=== PATIENT | male | born 1950 | race Caucasian/White ===

== ENCOUNTER 2022-01-20 17:24 | Inpatient (IN) | payer MEDICARE, OTHER ==
[~2022-01-20] VITALS: Ht 177.8 cm; Wt 73.9 kg
[2022-01-20 17:46] LABS: BASOPHILS # (AUTO) 0.1 (0.0-0.1); EOSINOPHILS # (AUTO) 0.2 (0.0-0.4); EOSINOPHILS % 1.5 % (0.0-6.0); HEMATOCRIT 23.8 % (38.2-49.6); HEMOGLOBIN 7.1 g/dL (14.0-18.0); LYMPHOCYTES # (AUTO) 0.8 (1.0-3.2); LYMPHOCYTES % 7.1 % (18.0-39.1); MEAN CORPUSCULAR HEMOGLOBIN 28.9 pg (28-32); MEAN CORPUSCULAR HGB CONC 29.8 g/dL (31-35); MEAN CORPUSCULAR VOLUME 96.7 fL (81-99); MONOCYTES # (AUTO) 0.8 (0.2-0.8); MONOCYTES % 6.7 % (4.4-11.3); NEUTROPHILS % 76.9 % (38.7-80.0); PLATELET COUNT 285 x10e3/uL (140-360); RED BLOOD COUNT 2.46 x10e6/uL (4.3-5.7); RED CELL DISTRIBUTION WIDTH 16.9 % (11.7-14.4)
[2022-01-20] MEDS ORDERED: SODIUM CHLORIDE FLUSH 10 ML SYR INJ PRN (18:00)
[2022-01-20 18:02] LABS: ANION GAP 14.4 mmol/L (8-16); CREATININE, SERUM 2.82 mg/dL (0.72-1.25); POTASSIUM 4.4 mmol/L (3.5-5.1)
[2022-01-20] MEDS ORDERED: DOCUSATE SODIUM 100 MG CAP PO PRN (19:45)
[2022-01-20 20:00] VITALS: BP 130/67
[2022-01-20 21:00] VITALS: BP 130/67
[2022-01-20 21:14] VITALS: BP 116/63
[2022-01-21] VITALS (8 sets, daily range): BP systolic 112–146; BP diastolic 59–72
[2022-01-21] MEDS: ONDANSETRON HCL INJ 2MG/ML 2ML 2 MG/ML VIAL IV PRN ×2 (00:15→23:27)
[2022-01-21] MEDS: Morphine 4mg Syringe 4 MG/ML INJ IV PRN (05:39)
[2022-01-21 06:01] LABS: HEMATOCRIT 22.1 % (38.2-49.6)
[2022-01-21 06:05] LABS: HEMOGLOBIN 6.7 g/dL (14.0-18.0)
[2022-01-21] MEDS: MULTIVITAMINS/MINERALS TAB PO SCH (09:09)
[2022-01-21] MEDS: FAMOTIDINE 20 MG TAB PO SCH ×2 (09:09→17:09)
[2022-01-21] MEDS ORDERED: SODIUM CHLORIDE 0.9% 250ML 250 ML ONE (10:52)
[2022-01-21] MEDS ORDERED: ACETAMINOPHEN 325 MG TAB PO PRN (20:00)
[2022-01-21 20:55] LABS: BASOPHILS # (AUTO) 0.1 (0.0-0.1); EOSINOPHILS # (AUTO) 0.2 (0.0-0.4); EOSINOPHILS % 1.6 % (0.0-6.0); HEMATOCRIT 27.3 % (38.2-49.6); HEMOGLOBIN 8.4 g/dL (14.0-18.0); LYMPHOCYTES % 8.3 % (18.0-39.1); MEAN CORPUSCULAR HEMOGLOBIN 29.7 pg (28-32); MEAN CORPUSCULAR HGB CONC 30.8 g/dL (31-35); MEAN CORPUSCULAR VOLUME 96.5 fL (81-99); MONOCYTES % 8.5 % (4.4-11.3); NEUTROPHILS # (AUTO) 8.7 (2.1-6.9); NEUTROPHILS % 74.4 % (38.7-80.0); PLATELET COUNT 230 x10e3/uL (140-360); RED BLOOD COUNT 2.83 x10e6/uL (4.3-5.7); RED CELL DISTRIBUTION WIDTH 17.3 % (11.7-14.4)
[2022-01-21 21:15] LABS: ALBUMIN 2.4 g/dL (3.5-5.0); ALBUMIN/GLOBULIN RATIO 0.7 (0.8-2.0); ANION GAP 14.7 mmol/L (8-16); CALCIUM 9.8 mg/dL (8.4-10.2); CREATININE, SERUM 2.84 mg/dL (0.72-1.25); POTASSIUM 4.7 mmol/L (3.5-5.1)
[2022-01-22] VITALS (8 sets, daily range): BP systolic 104–143; BP diastolic 60–78
[2022-01-22] MEDS: Morphine 4mg Syringe 4 MG/ML INJ IV PRN (06:59)
[2022-01-22] MEDS: MULTIVITAMINS/MINERALS TAB PO SCH (08:50)
[2022-01-22] MEDS: FAMOTIDINE 20 MG TAB PO SCH ×2 (08:50→16:07)
[2022-01-22 11:56] LABS: BASOPHILS # (AUTO) 0.2 (0.0-0.1); BASOPHILS % 1.7 % (0.0-1.0); EOSINOPHILS # (AUTO) 0.1 (0.0-0.4); EOSINOPHILS % 1.1 % (0.0-6.0); HEMOGLOBIN 9.4 g/dL (14.0-18.0); LYMPHOCYTES # (AUTO) 0.7 (1.0-3.2); LYMPHOCYTES % 6.2 % (18.0-39.1); MEAN CORPUSCULAR HEMOGLOBIN 29.1 pg (28-32); MEAN CORPUSCULAR HGB CONC 30.3 g/dL (31-35); MONOCYTES # (AUTO) 0.8 (0.2-0.8); MONOCYTES % 6.7 % (4.4-11.3); NEUTROPHILS # (AUTO) 9.2 (2.1-6.9); NEUTROPHILS % 78.7 % (38.7-80.0); PLATELET COUNT 246 x10e3/uL (140-360); RED BLOOD COUNT 3.23 x10e6/uL (4.3-5.7); RED CELL DISTRIBUTION WIDTH 17.9 % (11.7-14.4)
[2022-01-22 12:14] LABS: ANION GAP 13.8 mmol/L (8-16); CALCIUM 10.3 mg/dL (8.4-10.2); CREATININE, SERUM 2.84 mg/dL (0.72-1.25); POTASSIUM 4.8 mmol/L (3.5-5.1)
[2022-01-23] VITALS (9 sets, daily range): BP systolic 106–118; BP diastolic 53–69
[2022-01-23 05:36] LABS: HEMATOCRIT 27.3 % (38.2-49.6); HEMOGLOBIN 8.2 g/dL (14.0-18.0)
[2022-01-23] MEDS ORDERED: ONDANSETRON HCL 4 MG ORAL DISINTEGRATING TAB PO PRN (06:45)
[2022-01-23] MEDS: MULTIVITAMINS/MINERALS TAB PO SCH (08:00)
[2022-01-23] MEDS: Morphine 4mg Syringe 4 MG/ML INJ IV PRN (11:39)
[2022-01-24] VITALS (8 sets, daily range): BP systolic 101–124; BP diastolic 60–70
[2022-01-24] MEDS: MULTIVITAMINS/MINERALS TAB PO SCH (09:00)
[2022-01-24] MEDS ORDERED: COLACE100 MG PO (10:52)
[2022-01-24] MEDS ORDERED: MULTIVITAMINS1 EAC6 PO (10:52)
[2022-01-24] MEDS ORDERED: PANTOPRAZOLE SO40 MG PO (10:52)
[2022-01-25] VITALS (8 sets, daily range): BP systolic 116–142; BP diastolic 56–71
[2022-01-25] MEDS: SODIUM BICARBONATE 650 MG TAB PO SCH ×3 (08:17→20:38)
[2022-01-25] MEDS: MULTIVITAMINS/MINERALS TAB PO SCH (08:17)
[2022-01-25 08:53] LABS: ANION GAP 13.6 mmol/L (8-16); CALCIUM 11.2 mg/dL (8.4-10.2); CREATININE, SERUM 2.98 mg/dL (0.72-1.25); POTASSIUM 4.6 mmol/L (3.5-5.1)
[2022-01-26 00:23] VITALS: BP 100/48
[2022-01-26 07:52] VITALS: BP 131/69
[2022-01-26 08:00] VITALS: BP 131/69
[2022-01-26 08:27] LABS: HEMATOCRIT 30.3 % (38.2-49.6); HEMOGLOBIN 9.1 g/dL (14.0-18.0)
[2022-01-26] MEDS: SODIUM BICARBONATE 650 MG TAB PO SCH (08:40)
[2022-01-26] MEDS: MULTIVITAMINS/MINERALS TAB PO SCH (08:40)
[2022-01-26 08:45] LABS: ANION GAP 16.4 mmol/L (8-16); CALCIUM 11.3 mg/dL (8.4-10.2); CREATININE, SERUM 2.97 mg/dL (0.72-1.25); POTASSIUM 4.4 mmol/L (3.5-5.1)
[2022-01-26] MEDS ORDERED: SODIUM BICARBO650 MG PO (09:09)
[2022-01-26] MEDS ORDERED: PANTOPRAZOLE SO40 MG PO (09:09)
[2022-01-26] MEDS ORDERED: Multivitamins/Minerals PO (09:09)
[2022-01-26 12:09] VITALS: BP 134/68
[2022-01-26 16:03] VITALS: BP 139/73
[2022-01-26] MEDS ORDERED: PANTOPRAZOLE SOD 40 MG TABEC PO SCH (16:30)
== END 2022-01-26 16:34 | disposition hospice, inpatient (51) | DRG 436 ==
LOC: ER 17:36 → ERHOLD 18:04 → MED/SURG 20:18 → OBSVTOIN 01-21 12:15 → INTOOBSV 01-21 12:15 → UNDODISIN 01-21 18:27
PROVIDERS: ADMIT Internal Medicine; ATTEND Internal Medicine
PROC: 30233N1 Transfusion of Nonautologous Red Blood Cells into Peripheral Vein, Percutaneous Approach (ICD-10-PCS; principal; 2022-01-21)
DX: C22.9 Malignant neoplasm of liver, not specified as primary or secondary (principal); Z68.1 Body mass index [BMI] 19.9 or less, adult; N17.9 Acute kidney failure, unspecified; K92.2 Gastrointestinal hemorrhage, unspecified; E87.2 Acidosis; N18.4 Chronic kidney disease, stage 4 (severe); R63.6 Underweight; D63.0 Anemia in neoplastic disease; Z20.822 Contact with and (suspected) exposure to COVID-19; D50.0 Iron deficiency anemia secondary to blood loss (chronic)
CPT/HCPCS: 36415; 80048; 80053; 82270; 85014; 85018; 85025; 86850; 86900; 86920; 93005; 94799; 97139; 99284; G0378; J2270; J2405; J7050; P9016; Q0162; U0002